=== PATIENT | female | born 1945 | race Caucasian/White ===

== ENCOUNTER 2017-03-26 08:44 | Day surgery (SDC) | payer MEDICARE ==
[~2017-03-26] VITALS: Ht 162.6 cm; Wt 82.9 kg
[2017-03-26 09:14] LABS: MEAN CELL VOLUME 88 fl (80.0-100.0); MEAN CORPUSCULAR HGB CONC 31 g/dl (33.0-37.0); MEAN PLATELET VOLUME 9.6 fl (7.4-10.4); PLATELET COUNT 293 K/mm3 (130-400); RED BLOOD COUNT 3.94 M/mm3 (4.10-5.30); WHITE BLOOD COUNT 5.8 K/mm3 (4.8-10.8)
[2017-03-26 09:15] LABS: HEMATOCRIT 34.6 % (37.0-47.0); HEMOGLOBIN 10.7 g/dl (12.5-16.0); MEAN CORPUSCULAR HEMOGLOBIN 27 pg (27.0-31.0)
[2017-03-26 09:19] LABS: INR 1.4 (0.8-3.0); PROTHROMBIN TIME 15.4 SECONDS (9.7-12.8)
[2017-03-26 09:24] LABS: CALCIUM 8.9 mg/dL (8.4-10.2); CREATININE, serum 0.79 mg/dL (0.52-1.25); POTASSIUM 4.2 mmol/L (3.4-5.0)
[2017-03-26 09:29] VITALS: BP 143/98; PULSE 91; TEMP 97.8
[2017-03-26] MEDS ORDERED: COREG 25MG25 MG/TAB PO (09:36)
[2017-03-26] MEDS ORDERED: LYRICA 75MG CAP75 MG PO (09:36)
[2017-03-26] MEDS ORDERED: TRIAMCINOLONE A15 G3 TP (09:37)
[2017-03-26] MEDS ORDERED: FLAX OIL1000 MG PO (09:39)
[2017-03-26] MEDS ORDERED: [UNRECOGNIZED DRUG - OTHER] PO (09:39)
[2017-03-26] MEDS ORDERED: K-TAB10 PO (09:40)
[2017-03-26] MEDS ORDERED: VITAMIN D 400400 IU PO (09:41)
[2017-03-26] MEDS ORDERED: ATARAX 10MG10 MG/TAB PO (09:41)
[2017-03-26] MEDS ORDERED: DEXILANT60 MG PO (09:42)
[2017-03-26] MEDS ORDERED: HYZAAR 25 MG-101 TAB PO (09:44)
[2017-03-26] MEDS ORDERED: GAS-X ULTRA ST180 MG PO (09:49)
[2017-03-26] MEDS ORDERED: FLONASEALLERGY NS (09:49)
[2017-03-26] MEDS ORDERED: COUMADIN 2MG2 MG/TAB PO (09:58)
[2017-03-26] MEDS ORDERED: VALTREX 50500 MG/TAB PO (10:14)
[2017-03-26] MEDS ORDERED: CARAFATE 1GM1 G PO (10:15)
[2017-03-26 10:39] VITALS: PULSE 81
[2017-03-26 10:40] VITALS: BP 145/95; PULSE 92
[2017-03-26 10:55] VITALS: BP 139/99; PULSE 90
[2017-03-26 11:05] VITALS: BP 139/82; PULSE 80
[2017-03-26] MEDS ORDERED: XARELTO20 MG PO (11:23)
[2017-03-26 11:25] VITALS: BP 144/106; PULSE 84
== END 2017-03-26 12:40 | disposition home or self-care (01) ==
LOC: COL.CAR 08:44
PROVIDERS: Internal Medicine Cardiovascular Disease
DX: I48.0 Paroxysmal atrial fibrillation (principal); Z53.09 Procedure and treatment not carried out because of other contraindication; I51.3 Intracardiac thrombosis, not elsewhere classified; I11.0 Hypertensive heart disease with heart failure; E78.00 Pure hypercholesterolemia, unspecified; I08.3 Combined rheumatic disorders of mitral, aortic and tricuspid valves; B02.9 Zoster without complications; D50.9 Iron deficiency anemia, unspecified; K21.9 Gastro-esophageal reflux disease without esophagitis; I50.9 Heart failure, unspecified; Z79.01 Long term (current) use of anticoagulants
CPT/HCPCS: J2704

== ENCOUNTER 2017-04-27 08:25 | Inpatient (IN) | payer MEDICARE ==
[~2017-04-27] VITALS: Ht 162.6 cm; Wt 83.1 kg
[2017-04-27] VITALS (12 sets, daily range): BP systolic 91–150; BP diastolic 42–98; PULSE 44–82; TEMP 97–99
[~2017-04-27 08:25] MED LIST: ATARAX 10MG10 MG/TAB PO; CARAFATE 1GM1 G PO; COREG 25MG25 MG/TAB PO; COUMADIN 2MG2 MG/TAB PO; DEXILANT60 MG PO; FLAX OIL1000 MG PO; FLONASEALLERGY NS; GAS-X ULTRA ST180 MG PO; HYZAAR 25 MG-101 TAB PO; K-TAB10 PO; LYRICA 75MG CAP75 MG PO; TRIAMCINOLONE A15 G3 TP; VALTREX 50500 MG/TAB PO; VITAMIN D 400400 IU PO; XARELTO20 MG PO; [UNRECOGNIZED DRUG - OTHER] PO
[2017-04-27 09:24] LABS: MEAN CELL VOLUME 93 fl (80.0-100.0); MEAN CORPUSCULAR HGB CONC 29 g/dl (33.0-37.0); MEAN PLATELET VOLUME 9.2 fl (7.4-10.4); PLATELET COUNT 277 K/mm3 (130-400); RED BLOOD COUNT 3.42 M/mm3 (4.10-5.30); WHITE BLOOD COUNT 6.5 K/mm3 (4.8-10.8)
[2017-04-27 09:25] LABS: HEMATOCRIT 31.9 % (37.0-47.0); HEMOGLOBIN 9.2 g/dl (12.5-16.0); MEAN CORPUSCULAR HEMOGLOBIN 27 pg (27.0-31.0)
[2017-04-27 09:32] LABS: INR 2.4 (0.8-3.0)
[2017-04-27 09:50] LABS: CREATININE, serum 0.92 mg/dL (0.52-1.25)
[2017-04-28 00:15] VITALS: BP 133/57; PULSE 50; TEMP 99.1
[2017-04-28 06:17] LABS: BASO % 0.5 % (0.0-2.0); EOS # 0.1 (0.0-0.7); EOS % 2.5 % (0-4.0); GRAN % 66.9 % (42.2-75.2); LYMPH # 0.8 (1.2-3.4); LYMPH % 17.4 % (20.0-51.0); MEAN CELL VOLUME 94 fl (80.0-100.0); MEAN CORPUSCULAR HGB CONC 29 g/dl (33.0-37.0); MEAN PLATELET VOLUME 9.7 fl (7.4-10.4); MONO # 0.5 (0.1-0.6); MONO % 12.2 % (1.7-9.3); PLATELET COUNT 234 K/mm3 (130-400); RED BLOOD COUNT 2.97 M/mm3 (4.10-5.30); WHITE BLOOD COUNT 4.4 K/mm3 (4.8-10.8)
[2017-04-28 06:18] LABS: HEMATOCRIT 27.9 % (37.0-47.0); MEAN CORPUSCULAR HEMOGLOBIN 27 pg (27.0-31.0)
[2017-04-28 06:27] LABS: CALCIUM 8.5 mg/dL (8.4-10.2); CREATININE, serum 0.86 mg/dL (0.52-1.25); MAGNESIUM 1.8 mg/dL (1.6-2.3); POTASSIUM 3.8 mmol/L (3.4-5.0)
[2017-04-28 08:00] VITALS: BP 140/68; PULSE 82; TEMP 97.7
[2017-04-28 11:31] LABS: RETIC % 4.5 % (0.5-3.52)
[2017-04-28 11:32] VITALS: BP 94/41; PULSE 43; TEMP 97.9
[2017-04-28 15:55] VITALS: BP 95/49; PULSE 80; TEMP 98.1
[2017-04-28 19:56] VITALS: BP 135/57; PULSE 55; TEMP 98.3
[2017-04-29] VITALS (11 sets, daily range): BP systolic 109–144; BP diastolic 41–83; PULSE 41–53; TEMP 97.2–98.5
[2017-04-29 06:55] LABS: BASO % 0.3 % (0.0-2.0); EOS # 0.1 (0.0-0.7); EOS % 1.5 % (0-4.0); GRAN # 4.1 (1.4-6.5); GRAN % 68.8 % (42.2-75.2); LYMPH # 1.1 (1.2-3.4); LYMPH % 18.8 % (20.0-51.0); MEAN CELL VOLUME 95 fl (80.0-100.0); MEAN CORPUSCULAR HGB CONC 28 g/dl (33.0-37.0); MEAN PLATELET VOLUME 10.1 fl (7.4-10.4); MONO # 0.6 (0.1-0.6); MONO % 10.3 % (1.7-9.3); PLATELET COUNT 246 K/mm3 (130-400); RED BLOOD COUNT 2.78 M/mm3 (4.10-5.30); WHITE BLOOD COUNT 5.9 K/mm3 (4.8-10.8)
[2017-04-29 06:57] LABS: HEMATOCRIT 26.4 % (37.0-47.0); HEMOGLOBIN 7.5 g/dl (12.5-16.0); MEAN CORPUSCULAR HEMOGLOBIN 27 pg (27.0-31.0)
[2017-04-29 07:05] LABS: CALCIUM 8.2 mg/dL (8.4-10.2); CREATININE, serum 0.87 mg/dL (0.52-1.25); POTASSIUM 4.3 mmol/L (3.4-5.0)
[2017-04-30] VITALS (7 sets, daily range): BP systolic 129–156; BP diastolic 46–78; PULSE 47–63; TEMP 97.5–98.8
[2017-04-30 06:51] LABS: BASO % 0.4 % (0.0-2.0); EOS # 0.1 (0.0-0.7); EOS % 2.6 % (0-4.0); GRAN # 3.3 (1.4-6.5); GRAN % 65.3 % (42.2-75.2); LYMPH # 1.1 (1.2-3.4); LYMPH % 21.9 % (20.0-51.0); MEAN CELL VOLUME 94 fl (80.0-100.0); MEAN CORPUSCULAR HGB CONC 29 g/dl (33.0-37.0); MEAN PLATELET VOLUME 9.5 fl (7.4-10.4); MONO # 0.5 (0.1-0.6); MONO % 9.4 % (1.7-9.3); PLATELET COUNT 235 K/mm3 (130-400)
[2017-04-30 06:57] LABS: HEMATOCRIT 30.2 % (37.0-47.0); HEMOGLOBIN 8.7 g/dl (12.5-16.0); MEAN CORPUSCULAR HEMOGLOBIN 27 pg (27.0-31.0)
[2017-04-30 07:02] LABS: CALCIUM 8.3 mg/dL (8.4-10.2); CREATININE, serum 0.86 mg/dL (0.52-1.25); MAGNESIUM 1.9 mg/dL (1.6-2.3); POTASSIUM 4.4 mmol/L (3.4-5.0)
[2017-05-01] VITALS (7 sets, daily range): BP systolic 97–155; BP diastolic 45–70; PULSE 43–74; TEMP 97.8–98.2
[2017-05-01 07:33] LABS: BASO % 0.3 % (0.0-2.0); EOS # 0.1 (0.0-0.7); EOS % 0.6 % (0-4.0); GRAN # 6.2 (1.4-6.5); GRAN % 78.7 % (42.2-75.2); LYMPH # 1.1 (1.2-3.4); LYMPH % 13.3 % (20.0-51.0); MEAN CELL VOLUME 93 fl (80.0-100.0); MEAN CORPUSCULAR HGB CONC 29 g/dl (33.0-37.0); MONO # 0.5 (0.1-0.6); MONO % 6.7 % (1.7-9.3); PLATELET COUNT 250 K/mm3 (130-400); RED BLOOD COUNT 2.81 M/mm3 (4.10-5.30); WHITE BLOOD COUNT 7.9 K/mm3 (4.8-10.8)
[2017-05-01 07:44] LABS: CALCIUM 8.2 mg/dL (8.4-10.2); CREATININE, serum 0.75 mg/dL (0.52-1.25); MAGNESIUM 1.8 mg/dL (1.6-2.3); POTASSIUM 4.1 mmol/L (3.4-5.0)
[2017-05-01 07:51] LABS: HEMATOCRIT 26.2 % (37.0-47.0); HEMOGLOBIN 7.7 g/dl (12.5-16.0); MEAN CORPUSCULAR HEMOGLOBIN 27 pg (27.0-31.0)
[2017-05-01] MEDS ORDERED: BETAPACEAF120 PO (17:34)
[2017-05-01] MEDS ORDERED: PROTONIX 40MG T40 MG PO (17:35)
== END 2017-05-01 18:18 | disposition home or self-care (01) | DRG 308 ==
LOC: COL.CAR 08:25 → MEDICAL 14:44 → COL.CAR 14:45 → MEDICAL 14:45
PROVIDERS: Internal Medicine Cardiovascular Disease; Internal Medicine Gastroenterology
PROC: 5A2204Z Restoration of Cardiac Rhythm, Single (ICD-10-PCS; principal; 2017-04-27)
PROC: 0DJD8ZZ Inspection of Lower Intestinal Tract, Via Natural or Artificial Opening Endoscopic (ICD-10-PCS; 2017-05-01)
PROC: 0DJ08ZZ Inspection of Upper Intestinal Tract, Via Natural or Artificial Opening Endoscopic (ICD-10-PCS; 2017-05-01 11:00)
DX: I48.0 Paroxysmal atrial fibrillation (principal); K25.4 Chronic or unspecified gastric ulcer with hemorrhage; D62 Acute posthemorrhagic anemia; I10 Essential (primary) hypertension; K64.1 Second degree hemorrhoids
CPT/HCPCS: G9654; J2250; J2704; J3010; J3475; J7030; J7050; J7120; P9016

== ENCOUNTER 2018-04-24 09:23 | Day surgery (SDC) | payer MEDICARE, OTHER ==
[2018-04-24] VITALS (12 sets, daily range): BP systolic 106–148; BP diastolic 55–77; PULSE 52–63; TEMP 97.5
[~2018-04-24] VITALS: Ht 162.6 cm; Wt 78.6 kg
[~2018-04-24 09:23] MED LIST changes: +BETAPACEAF120 PO; +PROTONIX 40MG T40 MG PO
[2018-04-24] MEDS ORDERED: ELIQUIS 2.5 PO ×2 (10:06→12:04)
[2018-04-24] MEDS ORDERED: COLACE 100100 MG/CAP PO (10:07)
[2018-04-24] MEDS ORDERED: FERREX 150150 MG PO (10:08)
[2018-04-24] MEDS ORDERED: COZAAR 50MG50 MG/TAB PO (10:09)
[2018-04-24] MEDS ORDERED: LASIX 20MG TABL20 MG PO (10:09)
[2018-04-24] MEDS ORDERED: DEXILANT60 MG PO (10:10)
[2018-04-24 10:48] LABS: HEMATOCRIT 38.7 % (37.0-47.0); HEMOGLOBIN 12.2 g/dl (12.5-16.0); MEAN CELL VOLUME 88 fl (80.0-100.0); MEAN CORPUSCULAR HEMOGLOBIN 28 pg (27.0-31.0); MEAN CORPUSCULAR HGB CONC 32 g/dl (33.0-37.0); MEAN PLATELET VOLUME 10.3 fl (7.4-10.4); PLATELET COUNT 223 K/mm3 (130-400); REDCELL DISTRIBUTION WIDTH-CV 20.8 % (11.5-14.5)
[2018-04-24 10:50] LABS: INR 1.1 (0.8-3.0)
[2018-04-24 11:00] LABS: CALCIUM 9.7 mg/dL (8.4-10.2); CREATININE, serum 1.07 mg/dL (0.52-1.25); POTASSIUM 3.8 mmol/L (3.4-5.0)
[2018-04-24] MEDS ORDERED: LIPITOR20 MG PO (12:05)
== END 2018-04-24 17:54 | disposition home or self-care (01) ==
LOC: COL.CAR 09:23
PROVIDERS: Internal Medicine Cardiovascular Disease
DX: I25.10 Atherosclerotic heart disease of native coronary artery without angina pectoris (principal); R94.39 Abnormal result of other cardiovascular function study; I48.91 Unspecified atrial fibrillation; I10 Essential (primary) hypertension; E78.5 Hyperlipidemia, unspecified; D64.9 Anemia, unspecified; Z86.711 Personal history of pulmonary embolism; I73.9 Peripheral vascular disease, unspecified; Z88.1 Allergy status to other antibiotic agents; Z88.2 Allergy status to sulfonamides; Z88.8 Allergy status to other drugs, medicaments and biological substances; Z91.018 Allergy to other foods; Z79.01 Long term (current) use of anticoagulants
CPT/HCPCS: J1644; J2250; J3010; Q9967

== ENCOUNTER 2018-08-14 10:24 | Day surgery (SDC) | payer MEDICARE, OTHER, MEDICAID ==
[2018-08-14] VITALS (7 sets, daily range): BP systolic 139–168; BP diastolic 65–77; PULSE 53–62; TEMP 98.1
[~2018-08-14] VITALS: Ht 162.6 cm; Wt 80.0 kg
[~2018-08-14 10:24] MED LIST changes: +COLACE 100100 MG/CAP PO; +COZAAR 50MG50 MG/TAB PO; +ELIQUIS 2.5 PO; +FERREX 150150 MG PO; -FLAX OIL1000 MG PO; +FLAXSEED OIL1000 MG PO; +LASIX 20MG TABL20 MG PO; +LIPITOR20 MG PO
[2018-08-14] MEDS ORDERED: PACERONE400 MG PO (10:55)
[2018-08-14] MEDS ORDERED: B-12 100 MCG PO (10:58)
[2018-08-14] MEDS ORDERED: ALDACTONE 25MG25 M1 PO (11:00)
[2018-08-14] MEDS ORDERED: LIPITOR20 MG PO (11:23)
[2018-08-14 11:24] LABS: HEMOGLOBIN 10.6 g/dl (12.5-16.0); MEAN CELL VOLUME 90 fl (80.0-100.0); MEAN CORPUSCULAR HEMOGLOBIN 28 pg (27.0-31.0); MEAN CORPUSCULAR HGB CONC 31 g/dl (33.0-37.0); MEAN PLATELET VOLUME 9.8 fl (7.4-10.4); PLATELET COUNT 250 K/mm3 (130-400); RED BLOOD COUNT 3.82 M/mm3 (4.10-5.30); REDCELL DISTRIBUTION WIDTH-CV 15.7 % (11.5-14.5)
[2018-08-14] MEDS ORDERED: COREG 6.256.25 MG/TA PO (11:24)
[2018-08-14 11:26] LABS: INR 1.6 (0.8-3.0); PROTHROMBIN TIME 18.2 SECONDS (9.7-12.8)
[2018-08-14] MEDS ORDERED: CARTIA XT240 MG PO (11:26)
[2018-08-14] MEDS ORDERED: ELIQUIS 2.5 PO ×2 (11:27→13:45)
[2018-08-14] MEDS ORDERED: PRILOSEC 20MG20 MG PO (11:28)
[2018-08-14] MEDS ORDERED: FLONASEALLERGY NS (11:30)
[2018-08-14] MEDS ORDERED: MUCINEX 60600 MG/TA1 PO (11:31)
[2018-08-14 11:33] LABS: HEMATOCRIT 34.4 % (37.0-47.0)
[2018-08-14] MEDS ORDERED: ANTIVERT 12.512.5 MG PO (11:33)
[2018-08-14] MEDS ORDERED: GAS RELIEF125 MG PO (11:33)
[2018-08-14 11:34] LABS: CALCIUM 9.3 mg/dL (8.4-10.2); CREATININE, serum 0.88 (0.52-1.25); POTASSIUM 4.2 mmol/L (3.4-5.0)
[2018-08-14] MEDS ORDERED: B-12 250 MCG PO (11:35)
[2018-08-14] MEDS ORDERED: VTAMINC250TA PO (11:36)
[2018-08-14] MEDS ORDERED: NATURAL POTASS595 MG PO (11:37)
[2018-08-14] MEDS ORDERED: MULTI-VITAMIN W1 TA1 PO (11:38)
--- NOTE | 2018-08-14 12:30 | NUR ---
Report received from Adriano ALVA in dental laboratory assistant: COOPER/CV complete and successful. Pt resting well in bed, daughter at bedside.
--- NOTE | 2018-08-14 14:15 | NUR ---
Pt has ambulated, voided and rama PO intake s n/v.
--- NOTE | 2018-08-14 14:30 | NUR ---
PIV removed with catheter intact.
--- NOTE | 2018-08-14 14:40 | NUR ---
Pt discharged per w/c by nurse with daughter.
== END 2018-08-14 16:35 | disposition home or self-care (01) ==
LOC: COL.CAR 10:24
PROVIDERS: Internal Medicine Cardiovascular Disease
DX: I48.0 Paroxysmal atrial fibrillation (principal); I35.1 Nonrheumatic aortic (valve) insufficiency; E78.00 Pure hypercholesterolemia, unspecified; G89.29 Other chronic pain; M25.519 Pain in unspecified shoulder; M25.569 Pain in unspecified knee; Z87.11 Personal history of peptic ulcer disease; D50.9 Iron deficiency anemia, unspecified; I11.0 Hypertensive heart disease with heart failure; I50.9 Heart failure, unspecified; K21.9 Gastro-esophageal reflux disease without esophagitis; M19.90 Unspecified osteoarthritis, unspecified site; Z88.1 Allergy status to other antibiotic agents; Z88.8 Allergy status to other drugs, medicaments and biological substances; Z88.2 Allergy status to sulfonamides; Z88.6 Allergy status to analgesic agent; Z91.018 Allergy to other foods; Z79.01 Long term (current) use of anticoagulants; Z82.49 Family history of ischemic heart disease and other diseases of the circulatory system; Z96.653 Presence of artificial knee joint, bilateral; Z90.710 Acquired absence of both cervix and uterus
CPT/HCPCS: J2704

== ENCOUNTER 2018-09-20 09:10 | Day surgery (SDC) | payer MEDICARE, OTHER, MEDICAID ==
[~2018-09-20] VITALS: Ht 162.6 cm; Wt 77.3 kg
[~2018-09-20 09:10] MED LIST changes: +ALDACTONE 25MG25 M1 PO; +ANTIVERT 12.512.5 MG PO; +B-12 100 MCG PO; +B-12 250 MCG PO; +CARTIA XT240 MG PO; +COREG 6.256.25 MG/TA PO; +GAS RELIEF125 MG PO; +MUCINEX 60600 MG/TA1 PO; +MULTI-VITAMIN W1 TA1 PO; +NATURAL POTASS595 MG PO; +PACERONE400 MG PO; +PRILOSEC 20MG20 MG PO; +VTAMINC250TA PO
[2018-09-20 09:26] VITALS: BP 165/88; PULSE 59; TEMP 98
--- NOTE | 2018-09-20 09:48 | NUR ---
20G IV INSERTED TO RIGHT AC. LAB WORK OBTAINED UPON INSERTION.
[2018-09-20 09:49] LABS: HEMATOCRIT 41.5 % (37.0-47.0); HEMOGLOBIN 12.7 g/dl (12.5-16.0); MEAN CELL VOLUME 84 fl (80.0-100.0); MEAN CORPUSCULAR HEMOGLOBIN 26 pg (27.0-31.0); MEAN CORPUSCULAR HGB CONC 31 g/dl (33.0-37.0); MEAN PLATELET VOLUME 9.1 fl (7.4-10.4); PLATELET COUNT 321 K/mm3 (130-400); RED BLOOD COUNT 4.94 M/mm3 (4.10-5.30); REDCELL DISTRIBUTION WIDTH-CV 17.7 % (11.5-14.5)
[2018-09-20 09:54] LABS: INR 1.6 (0.8-3.0); PROTHROMBIN TIME 17.8 SECONDS (9.7-12.8)
[2018-09-20 09:59] LABS: CALCIUM 9.5 mg/dL (8.4-10.2); CREATININE, serum 0.96 (0.52-1.25); POTASSIUM 4.8 mmol/L (3.4-5.0)
[2018-09-20] MEDS ORDERED: NORVASC 5MG5 MG/TAB PO (10:07)
[2018-09-20 10:09] VITALS: BP 149/66; PULSE 53; TEMP 98
--- NOTE | 2018-09-20 10:17 | NUR ---
REPORT RECEIVED FROM ANESTHESIA. PT CARDIOVERTED WITH 200 JOULES INTO SB WITH OCCASSIONAL PACS. PT GIVEN 70MCG PROPOFOL FOR PROCEDURE. PT AWAKE, ALERT AND ORIENTED. PT'S LUNGS CLEAR, PT DENIES ANY PAIN OR SOB. FAMILY AT BEDSIDE.
[2018-09-20 10:24] VITALS: BP 169/74; PULSE 51; TEMP 98
[2018-09-20 10:39] VITALS: BP 166/75; PULSE 52; TEMP 98
--- NOTE | 2018-09-20 10:39 | NUR ---
POST CARDIOVERSION EKG BEING DONE BY ALFONSO ALLEN
--- NOTE | 2018-09-20 10:49 | NUR ---
SPOKE WITH BRIAN BOSWELL. PT IS TO STOP BY OFFICE AFTER SHE IS DISCHARGED FROM HOSPITAL AND WILL BE GIVEN 24 HEART MONITOR AND THEY WILL SET UP FOLLOWUP APPT AT THAT TIME.
[2018-09-20 10:54] VITALS: BP 166/76; PULSE 62; TEMP 97.5
[2018-09-20 11:24] VITALS: BP 165/79; PULSE 57; TEMP 98
--- NOTE | 2018-09-20 11:50 | NUR ---
PT ATE LUNCH AND AMBULATED WITHOUT DIFFICULTY. DISCHARGE INSTRUCTIONS REVIEWED WITH PATIENT AND FAMILY. IV DISCONTINUED.
--- NOTE | 2018-09-20 12:13 | NUR ---
DISCHARGE INSTRUCTIONS REVIEWED WITH PATIENT AND FAMILY. PT VERBALIZED UNDERSTANDING. PT WHEELED TO FAMILY CAR BY RN. PT AMBULATED TO CHAIR AND TO CAR WITHOUT DIFFICULTY.
== END 2018-09-20 12:10 | disposition home or self-care (01) ==
LOC: COL.CAR 09:10
PROVIDERS: Internal Medicine Cardiovascular Disease
DX: I48.0 Paroxysmal atrial fibrillation (principal); I10 Essential (primary) hypertension; E78.00 Pure hypercholesterolemia, unspecified; G89.29 Other chronic pain; M25.569 Pain in unspecified knee; M25.519 Pain in unspecified shoulder; I08.0 Rheumatic disorders of both mitral and aortic valves; D50.9 Iron deficiency anemia, unspecified; I27.20 Pulmonary hypertension, unspecified; Z79.01 Long term (current) use of anticoagulants; Z88.1 Allergy status to other antibiotic agents; Z88.6 Allergy status to analgesic agent; Z88.2 Allergy status to sulfonamides; Z91.018 Allergy to other foods; Z88.8 Allergy status to other drugs, medicaments and biological substances; Z82.49 Family history of ischemic heart disease and other diseases of the circulatory system; Z87.11 Personal history of peptic ulcer disease; Z96.653 Presence of artificial knee joint, bilateral; Z90.710 Acquired absence of both cervix and uterus; K21.9 Gastro-esophageal reflux disease without esophagitis; M19.90 Unspecified osteoarthritis, unspecified site
CPT/HCPCS: J2704; J7120

== ENCOUNTER 2020-02-24 06:53 | Observation (INO) | payer MEDICARE, OTHER, MEDICAID ==
[~2020-02-24] VITALS: Ht 162.6 cm; Wt 79.3 kg
[2020-02-24] VITALS (10 sets, daily range): BP systolic 111–181; BP diastolic 53–88; PULSE 52–70; TEMP 97–98.9
[~2020-02-24 06:53] MED LIST changes: +NORVASC 5MG5 MG/TAB PO
[2020-02-24] MEDS ORDERED: ELIQUIS 5MG PO (09:51)
[2020-02-24] MEDS ORDERED: ALDACTONE50 MG PO (09:51)
[2020-02-24] MEDS ORDERED: COZAAR100 MG PO ×2 (09:54→16:28)
[2020-02-24] MEDS ORDERED: B-12 500 MCG PO (09:56)
[2020-02-24] MEDS ORDERED: BENADRYL25 M2 PO (09:56)
[2020-02-24] MEDS ORDERED: DEXILANT60 MG PO (10:01)
[2020-02-24] MEDS ORDERED: STOOL SOFTENER100 M2 PO (10:01)
[2020-02-24] MEDS ORDERED: CLARITIN-D 10 M1 T24 PO (10:02)
[2020-02-24] MEDS ORDERED: [UNRECOGNIZED DRUG - OTHER] PO (10:06)
--- NOTE | 2020-02-24 16:20 | NUR ---
Patient to room from PACU via bed. Alert and oriented x3, a little drowsy. Says that she has some discomfort in her abd area but it is better than what it was. Lap sites x3 to abd with bandaids CDI. Granddaughter in room with the patient. Oriented to room. Denies additional needs at this time.
[2020-02-24] MEDS ORDERED: CORDARONE200 MG/TAB PO (16:30)
--- NOTE | 2020-02-24 17:47 | NUR ---
Patient has home meds with her personal belongings that the granddaughter did not take home with her when she left. Contacted Ana in pharmacy. Meds placed in ziplock bag with patient name label in med room cabinet for pharmacy to pick up truck driver.
--- NOTE | 2020-02-24 20:37 | NUR ---
Resting in bed. Assessment complete. Lungs clear. Heart sounds normal. Bowels active x4. Pulses present throughout. No edema noted. INT right forearm without complications. Denies pain. Denies needs. x3 lap sites CDI. Call light in reach.
--- NOTE | 2020-02-24 22:14 | NUR ---
Resting in bed. Call light in reach.
--- NOTE | 2020-02-25 00:11 | NUR ---
Resting in bed. Denies pain. Denies needs. Call light in reach.
--- NOTE | 2020-02-25 03:51 | NUR ---
Resting in bed. Denies pain. Denies needs. Call light in reach.
[2020-02-25 03:59] VITALS: BP 135/79; PULSE 53; TEMP 97.6
--- NOTE | 2020-02-25 05:28 | NUR ---
Patient had uneventful night. Lap sites remained CDI throughout night. Denies needs this AM. Call light in reach.
--- NOTE | 2020-02-25 06:46 | NUR ---
Report given to ARTIE Allen
[2020-02-25 07:45] VITALS: BP 116/51; PULSE 68; TEMP 98
--- NOTE | 2020-02-25 08:05 | NUR ---
Patient lying in bed with eyes open. Minimal pain at this time. Has been up to the bathroom to urinate. Requests Claritin with morning medication, will administer at this time. Patient begins talking on phone. Denies additional needs.
--- NOTE | 2020-02-25 09:04 | NUR ---
NATALIIA met with the patient and her granddaughter, Ana, to discuss discharge plan. The patient lives alone in [place]. She reports independence with ADLs and has a cane. The patient's PCP is Dr. Shamar Magallanes and she receives her medications at [facility]. She reports no difficulties obtaining her meds. The patient does not have a DPOA-HC in EMR, but she states that she does have one completed and that her daughter, Arti Martinez (ph#[phone]), is her DPOA-HC. Arti lives in [place]. The patient has two other children: Jackie (Arnaldo) and Padmini (VICKIE). The patient plans to return home upon discharge. No additional needs at this time.
--- NOTE | 2020-02-25 10:42 | NUR ---
Shift assessment complete: ABD Lap site incision X3 CDI. Good appetite. No abd distention noted. States no flatus or BM. Ambulates in room w/ steady gait. Independently performs ADL's
[2020-02-25 11:05] VITALS: BP 123/71; PULSE 58; TEMP 98.3
--- NOTE | 2020-02-25 11:20 | NUR ---
First visit from the tomato grader. No needs right now.
--- NOTE | 2020-02-25 12:10 | NUR ---
Lying in bed watching TV. Granddaughter at bedside. Denies pain. Asked patient if she would like to walk in the halls and she says that she wants to let her stomach rest as she jsut ate lunch but later she and her granddaughter will go for a walk. Denies any additional needs at this time.
--- NOTE | 2020-02-25 15:50 | NUR ---
Lying in bed with eyes closed. Opens eyes when name called out. Denies pain. Is hoping to get out of the hospital here soon. Granddaughter at bedside. Denies additional needs at this time.
--- NOTE | 2020-02-25 16:18 | NUR ---
Meds received back from pharmacy. Will provide to the patient's granddaughter.
[2020-02-25 16:47] VITALS: BP 160/81; PULSE 64; TEMP 98
--- NOTE | 2020-02-25 17:07 | NUR ---
Reviewed discharge instructions with the patient and her granddaughter. Questions answered. Patient verbalizes understanding and signs discharge paperwork. Discharge packet provided to the patient. This nurse assists patient out to POV via wheel chair with all belongings.
== END 2020-02-25 17:07 | disposition home or self-care (01) ==
LOC: SDCO 06:53 → SURG 10:30 → SDCO 12:30 → SURG 16:18
PROVIDERS: ADMIT Surgery
DX: K40.20 Bilateral inguinal hernia, without obstruction or gangrene, not specified as recurrent (principal); I10 Essential (primary) hypertension; M19.90 Unspecified osteoarthritis, unspecified site; I35.1 Nonrheumatic aortic (valve) insufficiency; K21.9 Gastro-esophageal reflux disease without esophagitis; E78.1 Pure hyperglyceridemia; Z86.711 Personal history of pulmonary embolism; Z96.653 Presence of artificial knee joint, bilateral; Z96.611 Presence of right artificial shoulder joint; Z90.710 Acquired absence of both cervix and uterus; Z79.52 Long term (current) use of systemic steroids; Z79.01 Long term (current) use of anticoagulants; Z88.2 Allergy status to sulfonamides; Z88.1 Allergy status to other antibiotic agents; Z88.6 Allergy status to analgesic agent; Z91.018 Allergy to other foods; Z88.8 Allergy status to other drugs, medicaments and biological substances
CPT/HCPCS: OP; C1781; J0690; J1170; J2405; J2704; J2710; J3010; J7120

== ENCOUNTER 2020-06-09 09:45 | Day surgery (SDC) | payer MEDICARE, OTHER, MEDICAID ==
--- NOTE | 2020-06-09 09:15 | NUR ---
pt to eu 12 via w/c from shakir, up in room changed into gown, EKG done Dr Watkins into speak with pt, pt currently in sinus karen, explained will not need cardioversion today, will set up appt followup in [place], procedure cancelled
[~2020-06-09 09:45] MED LIST changes: +ALDACTONE50 MG PO; +B-12 500 MCG PO; +BENADRYL25 M2 PO; +CLARITIN-D 10 M1 T24 PO; +CORDARONE200 MG/TAB PO; +COZAAR100 MG PO; +ELIQUIS 5MG PO; +STOOL SOFTENER100 M2 PO; +[UNRECOGNIZED DRUG - OTHER] PO
[2020-06-09] MEDS ORDERED: VITAMIN D31000 IU PO (09:52)
[2020-06-09] MEDS ORDERED: FLONASEALLERGY (09:53)
[2020-06-09] MEDS ORDERED: FLAXSEED OIL1000 MG PO (09:53)
--- NOTE | 2020-06-09 10:10 | NUR ---
PT DISCHARGED AMB. WITH DISCHARGE INST. ON APPT IN [place] AND TO CON'T SAME MEDS AT HOME
== END 2020-06-09 10:15 | disposition home or self-care (01) ==
LOC: COL.CAR 09:45
DX: I48.91 Unspecified atrial fibrillation (principal); I10 Essential (primary) hypertension; K21.9 Gastro-esophageal reflux disease without esophagitis; M19.90 Unspecified osteoarthritis, unspecified site; I27.20 Pulmonary hypertension, unspecified; D64.9 Anemia, unspecified; Z79.01 Long term (current) use of anticoagulants; Z96.653 Presence of artificial knee joint, bilateral; Z90.710 Acquired absence of both cervix and uterus; Z88.2 Allergy status to sulfonamides; Z88.1 Allergy status to other antibiotic agents; Z53.8 Procedure and treatment not carried out for other reasons
CPT/HCPCS: J2704

== ENCOUNTER 2022-06-23 07:07 | Day surgery (SDC) | payer MEDICARE, OTHER, MEDICAID ==
[2022-06-23] VITALS (17 sets, daily range): BP systolic 11–138; BP diastolic 50–84; PULSE 47–60; TEMP 97.6
[~2022-06-23] VITALS: Ht 162.7 cm; Wt 70.1 kg
[~2022-06-23 07:07] MED LIST changes: +FLONASEALLERGY; +VITAMIN D31000 IU PO
[2022-06-23 08:13] LABS: HEMATOCRIT 40.9 % (37.0-47.0); HEMOGLOBIN 13.9 g/dl (12.5-16.0); MEAN CELL VOLUME 93 fl (80.0-100.0); MEAN CORPUSCULAR HEMOGLOBIN 32 pg (27-31); MEAN CORPUSCULAR HGB CONC 34 g/dl (33.0-37.0); MEAN PLATELET VOLUME 9.9 fl (7.4-10.4); PLATELET COUNT 208 K/mm3 (130-400); RED BLOOD COUNT 4.38 M/mm3 (4.10-5.30); REDCELL DISTRIBUTION WIDTH-CV 15.2 % (11.5-14.5)
[2022-06-23 08:21] LABS: INR 1.4 (0.8-3.0); PROTHROMBIN TIME 16.2 SECONDS (9.7-12.8)
[2022-06-23 08:24] LABS: PARTIAL THROMBOPLASTIN TIME 35.2 SECONDS (26.0-37.0)
[2022-06-23 08:28] LABS: CREATININE, serum 1.86 mg/dL (0.57-1.11); POTASSIUM 4.8 mmol/L (3.5-4.5)
[2022-06-23] MEDS ORDERED: PROTONIX 40MG T40 MG PO (08:51)
[2022-06-23] MEDS ORDERED: NORVASC 10MG10 MG PO (08:53)
[2022-06-23] MEDS ORDERED: ALDACTONE50 MG PO (08:54)
[2022-06-23] MEDS ORDERED: LIPITOR 40MG TA40 MG PO (08:55)
[2022-06-23] MEDS ORDERED: MIRALAX PA17 GM/Dose PO (09:06)
--- NOTE | 2022-06-23 09:06 | NUR ---
Patient to procedure,report to ARTIE Gregorio.
--- NOTE | 2022-06-23 09:19 | NUR ---
SEE MERGE FOR ALL MEDICATIONS, INTERVENTIONS, VITALS, ETCO2.
--- NOTE | 2022-06-23 15:00 | NUR ---
Discharge instructions given to pt.pt verbalizes understanding.Pt escorted out via wheelchair by this nurse.
== END 2022-06-23 16:07 ==
LOC: COL.CAR 07:07
PROVIDERS: Internal Medicine Cardiovascular Disease
DX: I25.10 Atherosclerotic heart disease of native coronary artery without angina pectoris (principal); I48.0 Paroxysmal atrial fibrillation
CPT/HCPCS: C1760; C1769; C1894; J1644; J2250; J3010; Q9967

== ENCOUNTER 2023-02-20 08:34 | Day surgery (SDC) | payer MEDICARE ==
[2023-02-20] VITALS (7 sets, daily range): BP systolic 111–127; BP diastolic 51–97; PULSE 48–70; TEMP 98
[~2023-02-20] VITALS: Ht 162.7 cm; Wt 68.8 kg
[~2023-02-20 08:34] MED LIST changes: +LIPITOR 40MG TA40 MG PO; +MIRALAX PA17 GM/Dose PO; +NORVASC 10MG10 MG PO
[2023-02-20 09:26] LABS: BASO % 0.5 % (0.0-2.0); EOS # 0.2 K/mm3 (0.0-0.7); GRAN # 4.5 K/mm3 (1.4-6.5); GRAN % 76.7 % (42.2-75.2); HEMOGLOBIN 10.6 g/dl (12.5-16.0); LYMPH # 0.6 K/mm3 (1.2-3.4); LYMPH % 9.7 % (20.0-51.0); MEAN CELL VOLUME 92 fl (80.0-100.0); MEAN CORPUSCULAR HEMOGLOBIN 29 pg (27-31); MEAN CORPUSCULAR HGB CONC 32 g/dl (33.0-37.0); MONO # 0.5 K/mm3 (0.1-0.6); MONO % 8.8 % (1.7-9.3); PLATELET COUNT 223 K/mm3 (130-400); RED BLOOD COUNT 3.67 M/mm3 (4.10-5.30); REDCELL DISTRIBUTION WIDTH-CV 16.4 % (11.5-14.5)
[2023-02-20 09:29] LABS: HEMATOCRIT 33.6 % (37.0-47.0)
[2023-02-20 09:33] LABS: INR 1.3 (0.8-3.0); PROTHROMBIN TIME 14.2 SECONDS (9.7-12.8)
[2023-02-20 09:36] LABS: PARTIAL THROMBOPLASTIN TIME 35.3 SECONDS (26.0-37.0)
[2023-02-20] MEDS ORDERED: ATIVAN 0.50.5 MG/TAB PO (09:39)
[2023-02-20] MEDS ORDERED: CARAFATE 1GM1 G PO (09:40)
[2023-02-20] MEDS ORDERED: FLOMAX 0.40.4 MG/CAP PO (09:40)
[2023-02-20] MEDS ORDERED: REGLAN 5MG T5 MG/TAB PO (09:40)
[2023-02-20] MEDS ORDERED: NAMENDA5 MG PO (09:41)
[2023-02-20 09:42] LABS: CALCIUM 9.1 mg/dL (8.4-10.2); CREATININE, serum 1.13 mg/dL (0.57-1.11); POTASSIUM 3.7 mmol/L (3.5-4.5)
[2023-02-20] MEDS ORDERED: NYSTATIN OR100 MU/ML PO (09:42)
[2023-02-20] MEDS ORDERED: FLAGYL500 MG PO (09:42)
[2023-02-20 10:02] LABS: THYROID STIMULATING HORMONE 0.166 uIU/mL (0.350-4.940)
--- NOTE | 2023-02-20 12:39 | NUR ---
PT TOLERATED RECOVERY PERIOD WELL AND WAS ASSISTED TO MAIN LOBBY VIA WHEELCHAIR FOLLOWING PROCEDURE. PT'S VITAL SIGNS REMAINED WITHIN NORMAL LIMITS AND PT'S IV WAS DISCONTINUED PRIOR TO DISCHARGE. PT WAS FREE FROM CONCERNS AND COMPLAINTS UPON DISCHARGE.
== END 2023-02-20 12:30 | disposition home or self-care (01) ==
LOC: COL.CAR 08:34
PROVIDERS: Internal Medicine Cardiovascular Disease
DX: I48.0 Paroxysmal atrial fibrillation (principal)
CPT/HCPCS: J2704

== ENCOUNTER 2023-09-12 09:45 | Day surgery (SDC) | payer MEDICARE ==
[~2023-09-12] VITALS: Ht 162.6 cm; Wt 64.7 kg
[2023-09-12] VITALS (14 sets, daily range): BP systolic 122–146; BP diastolic 57–79; PULSE 48–61; TEMP 97.5–97.9
[~2023-09-12 09:45] MED LIST changes: +ATIVAN 0.50.5 MG/TAB PO; +FLAGYL500 MG PO; +FLOMAX 0.40.4 MG/CAP PO; +LR 1,000 ML IV SCH; +NAMENDA5 MG PO; +NYSTATIN OR100 MU/ML PO; +REGLAN 5MG T5 MG/TAB PO
[2023-09-12] MEDS ORDERED: ceFAZolin 1 G in Water For Injection,Sterile 10 ML IV SCH (10:30)
[2023-09-12] MEDS ORDERED: NS Flush 10 ML SYRINGE PRN ICA (10:30)
[2023-09-12] MEDS ORDERED: 1/2 NS 1,000 ML IV SCH ×2 (10:30)
[2023-09-12 11:17] LABS: HEMOGLOBIN 11.8 g/dl (12.5-16.0); MEAN CELL VOLUME 102 fl (80.0-100.0); MEAN CORPUSCULAR HEMOGLOBIN 34 pg (27-31); MEAN CORPUSCULAR HGB CONC 34 g/dl (33.0-37.0); MEAN PLATELET VOLUME 9.7 fl (7.4-10.4); PLATELET COUNT 178 K/mm3 (130-400); RED BLOOD COUNT 3.44 M/mm3 (4.10-5.30); REDCELL DISTRIBUTION WIDTH-CV 13.7 % (11.5-14.5)
[2023-09-12 11:23] LABS: HEMATOCRIT 34.9 % (37.0-47.0)
[2023-09-12 11:29] LABS: INR 1.1 (0.8-3.0); PROTHROMBIN TIME 11.6 SECONDS (9.7-12.8)
[2023-09-12 11:32] LABS: CALCIUM 9.5 mg/dL (8.4-10.2); CREATININE, serum 1.84 mg/dL (0.57-1.11); MAGNESIUM 2.7 mg/dL (1.6-2.6); PARTIAL THROMBOPLASTIN TIME 32.5 SECONDS (26.0-37.0); POTASSIUM 5.3 mEq/L (3.5-4.5)
[2023-09-12] MEDS ORDERED: AMITRIPTYLINE H25 M1 PO (11:44)
[2023-09-12] MEDS ORDERED: ATIVAN 1MG T1 MG/TAB PO (11:45)
[2023-09-12] MEDS ORDERED: ALIVE PREMIUM PO (11:46)
[2023-09-12 11:52] LABS: THYROID STIMULATING HORMONE 0.198 uIU/mL (0.350-4.940)
[2023-09-12] MEDS ORDERED: MELATONIN5 M1 SL (11:58)
[2023-09-12] MEDS ORDERED: NATURE'S B5000 IU/ML PO (11:59)
[2023-09-12] MEDS ORDERED: FIBERCON PO (12:00)
[2023-09-12] MEDS ORDERED: NS 1,000 ML IV.SOLN. IR SCH (12:18)
--- NOTE | 2023-09-12 12:28 | NUR ---
SEE MERGE FOR PROCEDURE DOCUMENTATION
[2023-09-12] MEDS ORDERED: Iohexol 350 - 100 ML VIAL IV ONE (12:55)
[2023-09-12] MEDS ORDERED: NS 500 ML IV.SOLN. IR SCH (13:05)
[2023-09-12] MEDS ORDERED: fentaNYL 50 MCG/ML 2 ML VIAL IV SCH (13:13)
[2023-09-12] MEDS ORDERED: Midazolam 2 MG/2 ML VIAL IV SCH (13:15)
[2023-09-12] MEDS ORDERED: LORazepam 1 MG TAB PO PRN (13:45)
[2023-09-12] MEDS ORDERED: Clindamycin 150 MG CAP PO SCH (14:00)
[2023-09-12] MEDS ORDERED: Temazepam 15 MG CAP PO PRN (14:00)
--- NOTE | 2023-09-12 14:05 | NUR ---
Bedside report completed with Miguelina You. Insertion site reviewed, call light within reach, first set of vitals reviewed. No post op fluids. Miguelina YOU denies questions/concerns. [phone] for questions.
[2023-09-12] MEDS ORDERED: Docusate Sodium 100 MG CAP PO PRN (15:00)
[2023-09-12] MEDS ORDERED: Metoclopramide 10 MG TAB PO SCH (16:30)
[2023-09-12] MEDS ORDERED: Sucralfate 1 G TAB PO SCH (16:30)
--- NOTE | 2023-09-12 19:36 | NUR ---
Pt arrived to room 316 s/p pacemaker placement at approximately 1405. Pacemaker site CDI and soft without s/s hematoma. VSS- see flowsheet. IV to left ac leaked when flushed- d/c'd with cath tip intact. #20 started x1 attempt to RFA. Amiodarone dose administered IV to RFA- VSS- see flowsheet. Sling to LUE in place. Ice to surgical site throughout shift. Pt sat up in chair for dinner and tolerated well. Pt answers orientation questions appropriately but has forgetfulness at time. Denies pain or needs. Fall precautions in place. Bedside shift report given to ARTIE Cox.
[2023-09-12] MEDS ORDERED: NS Flush 10 ML SYRINGE BID ICA SCH (21:00)
[2023-09-12] MEDS ORDERED: Atorvastatin 40 MG TAB PO SCH (21:00)
[2023-09-12] MEDS ORDERED: Amiodarone 200 MG TAB PO SCH (21:00)
[2023-09-12] MEDS ORDERED: Apixaban 2.5 MG TAB PO SCH (21:00)
[2023-09-12] MEDS ORDERED: Melatonin 3 MG TAB PO SCH (21:00)
[2023-09-12] MEDS ORDERED: Amitriptyline 25 MG TAB PO SCH (21:00)
--- NOTE | 2023-09-12 21:30 | NUR ---
Patient resting in bed. Rates her pain at 5/10, prn pain meds given. Needs met. Assessment complete. Pacemaker site to left upper chest CDI. IV in right forearm flushes easily with no complications. Call light and personal items in reach. Bed in low position and bed alarm on.
--- NOTE | 2023-09-12 22:47 | NUR ---
Paged Cardiology Dr. Watkins at this time. Recievied a call from Dr. Watkins at 2250 and notified that patient states she has some pain at the incision site when taking a deep breath in rating her pain at 5/10. Recieved new orders.
[2023-09-12] MEDS ORDERED: fentaNYL 50 MCG/ML 2 ML VIAL IV PRN (23:00)
[2023-09-13 01:10] VITALS: BP_SYST 122
[2023-09-13 03:45] VITALS: BP 128/68; PULSE 73; TEMP 98.8
[2023-09-13 04:51] VITALS: BP_SYST 128
--- NOTE | 2023-09-13 05:45 | NUR ---
Patient resting in bed. Denies any pain at this time. Needs met. Dressing to left chest CDI. No changes over night. Call light and personal items in reach. Bed in low position and bed alarm on.
[2023-09-13 06:56] LABS: BASO % 0.2 % (0.0-2.0); EOS # 0.1 K/mm3 (0.0-0.7); EOS % 2.3 % (0.0-4.0); GRAN # 3.7 K/mm3 (1.4-6.5); GRAN % 70.8 % (42.2-75.2); LYMPH # 0.8 K/mm3 (1.2-3.4); LYMPH % 14.8 % (20.0-51.0); MEAN CELL VOLUME 102 fl (80.0-100.0); MEAN CORPUSCULAR HEMOGLOBIN 34 pg (27-31); MEAN CORPUSCULAR HGB CONC 33 g/dl (33.0-37.0); MEAN PLATELET VOLUME 9.5 fl (7.4-10.4); MONO # 0.6 K/mm3 (0.1-0.6); MONO % 11.7 % (1.7-9.3); PLATELET COUNT 164 K/mm3 (130-400); RED BLOOD COUNT 3.25 M/mm3 (4.10-5.30); REDCELL DISTRIBUTION WIDTH-CV 13.3 % (11.5-14.5)
[2023-09-13 07:08] LABS: HEMATOCRIT 33.2 % (37.0-47.0)
[2023-09-13 07:26] LABS: CALCIUM 9.1 mg/dL (8.4-10.2); CREATININE, serum 1.27 mg/dL (0.57-1.11); MAGNESIUM 2.2 mg/dL (1.6-2.6); POTASSIUM 4.7 mEq/L (3.5-4.5)
[2023-09-13 07:36] VITALS: BP 127/75; PULSE 59; TEMP 98.2
--- NOTE | 2023-09-13 07:45 | NUR ---
Patient laying in bed sleeping, easily awakened with verbal commmand. A&Ox3. VSS. IV CDI. LF arm in sling. Incision site CDI. Call light within reach. Bed alarm on
[2023-09-13] MEDS ORDERED: amLODIPine 10 MG TAB PO SCH (09:00)
[2023-09-13] MEDS ORDERED: Memantine 5 MG TAB PO SCH (09:00)
[2023-09-13] MEDS ORDERED: Spironolactone 25 MG TAB PO SCH (09:00)
[2023-09-13] MEDS ORDERED: Losartan 50 MG TAB PO SCH (09:00)
[2023-09-13] MEDS ORDERED: Furosemide 20 MG TAB PO SCH (09:00)
[2023-09-13] MEDS ORDERED: Cholecalciferol (Vit D3) 5000 Units Capsule PO SCH (09:00)
[2023-09-13] MEDS ORDERED: CLEOCIN HCL300 MG PO (11:37)
[2023-09-13] MEDS ORDERED: PACERONE200 MG PO (11:38)
[2023-09-13 12:00] VITALS: BP 150/66; PULSE 64; TEMP 97.6
--- NOTE | 2023-09-13 12:11 | NUR ---
Data: Patient accepted Vp Of Digital Marketing visit offered during Vp Of Digital Marketing rounds. Patient was eating breakfast. Patient stated she is worried about going to the bathroom by herself when she goes home. Retirement Village Manager happened to knock on the door. Vp Of Digital Marketing asked Retirement Village Manager to join visit. Assessment: Patient has some fear about her continued mobility safety once she is discharged. Plan of Care: Having both the Vp Of Digital Marketing and the Retirement Village Manager reassure the Patient of the hospital's diligence before sending her home seemed to alleviate most of Patient's concerns. Vp Of Digital Marketing prayed for Patient. Vp Of Digital Marketing also assisted Patient with repositioning the head ofthe bed for more comfort.
--- NOTE | 2023-09-13 12:29 | NUR ---
Extractor Operator Helper met with patient to complete initial intake and Hospitalist Nocturnist Physician is at bedside advising patient is anxious about returning home. Patient lives in [place] and went back and forth on if she lives alone vs with family. At one point, patient stated she lived with her daughter, Jackie (ph#[phone]) and granddaughter, Ana. Patient could not remember the name of her primary care physician. Patient expressed some anxiety on how she will get around once she is home. NATALIIA followed up with RN who had no concerns for patient's mobility. NATALIIA then contacted daughter, Jackie who advised patient has her own home but would be staying with her upon discharge. Jackie advised patient also has serivces with [facility]. Patient has both a cane and walker available at home. Jackie advised she manages and administers patient's medications. Jackie also reported patient sees Dr. Ankur Silva for primary care. Discharge Plan: Home
--- NOTE | 2023-09-13 12:40 | NUR ---
Patient has continued complaints of nausea and SOB. VS assessed. O2 sats 95 on RM air and HR 60. Stating that she cannot breathe, but is talking in a calm voice to the nurse. Will continue to monitor
[2023-09-13 12:54] VITALS: BP 161/78; PULSE 61; TEMP 97.7
--- NOTE | 2023-09-13 16:21 | NUR ---
Discharge paperwork reviewed with the daughter at the bedside. Daughter verbalized an understanding to follow doctors orders. IV removed, tip intact. Gauze and coban applied. Patient taken down by wheelchair to awaiting vehicle. No further needs expressed
== END 2023-09-13 16:21 | disposition home or self-care (01) ==
LOC: COL.CAR 09:45 → MEDICAL 14:05 → COL.CAR 09-13 16:21
PROVIDERS: Internal Medicine Cardiovascular Disease
DX: I49.5 Sick sinus syndrome (principal); I48.0 Paroxysmal atrial fibrillation
CPT/HCPCS: OP; C1785; C1894; C1898; J0282; J0665-JZ; J0690; J0780; J2250; J2704; J3010; J7030; J7040; J7060; Q9967